=== PATIENT | male | born 1935 | race Two or more races ===

== ENCOUNTER 2021-01-06 06:58 | Inpatient (IN) | payer OTHER ==
[~2021-01-06] VITALS: Ht 172.7 cm; Wt 73.3 kg
[~2021-01-06 06:58] MED LIST: ALEN35TA18 PO; ASPI-543 PO; ATOR10TA52 PO; DOCU100T15 PO; FAMO-12 PO; FURO20TA3 PO; POTA10TA51 PO; SUCR1TAB PO
[2021-01-06] MEDS ORDERED: ceFAZolin 1GM/50ML 50 ML IV ONE ×2 (10:30→10:45)
[2021-01-06] MEDS ORDERED: fentaNYL CITRATE 100 MCG/2 ML VL ONE (10:34)
[2021-01-06] MEDS ORDERED: MIDAZOLAM HCL 2MG/2ML 2ml VIAL (1mg/ml) ONE (10:34)
[2021-01-06] MEDS ORDERED: LIDOCAINE 2%HCL (LOCAL ANESTH.) INJ 20ML MDV ONE (10:34)
[2021-01-06] MEDS ORDERED: ceFAZolin 1GM VL ONE (10:45)
[2021-01-06] MEDS ORDERED: ONDANSETRON HCL 4 MG/2 ML VIAL ONE (11:48)
[2021-01-06] MEDS ORDERED: ceFAZolin 1GM/50ML 50 ML IV SCH (12:30)
[2021-01-06] MEDS ORDERED: PANTOPRAZOLE 40 MG TAB PO ONE (12:30)
[2021-01-06] MEDS ORDERED: HYDROcodone-ACET 5/325MG TAB PO PRN (12:30)
[2021-01-06] MEDS ORDERED: SODIUM CHLORIDE 0.9% 70 ML IV ONE (12:30)
[2021-01-06] MEDS ORDERED: ACETAMINOPHEN 325 MG TAB PO PRN (12:30)
[2021-01-06] MEDS ORDERED: NITROGLYCERIN 0.4 MG SL TAB SL PRN (12:30)
[2021-01-06] MEDS ORDERED: DOCUSATE SOD 100 MG CAP PO PRN (12:45)
[2021-01-06] MEDS: PANTOPRAZOLE 40 MG/10 ML VIAL INJ IV SCH (14:50)
[2021-01-06 15:29] VITALS: BP 111/81
[2021-01-06 16:09] VITALS: BP 111/81
[2021-01-06 17:13] VITALS: BP 134/74
[2021-01-06] MEDS: ceFAZolin 1GM/50ML 50 ML IV SCH (17:35)
[2021-01-06] MEDS: SUCRALFATE 1 GM TAB PO SCH (21:38)
[2021-01-06] MEDS: FAMOTIDINE 20 MG TAB PO SCH (21:38)
[2021-01-06 22:00] VITALS: BP 135/69
[2021-01-06] MEDS ORDERED: ATORVASTATIN 20 MG TAB PO SCH (22:00)
[2021-01-07] MEDS: ceFAZolin 1GM/50ML 50 ML IV SCH (01:54)
[2021-01-07 05:00] VITALS: BP 135/60
[2021-01-07 07:42] LABS: Basophils # (auto) 0 10 ^3/uL (0-0.2); Basophils % (auto) 0.4 % (0.0-2.0); Eosinophils # (auto) 0.1 10 ^3/uL (0-0.8); Eosinophils % (auto) 1.2 % (0.0-7.0); Hematocrit 38.2 % (41.0-53.0); Hemoglobin 13.3 g/dL (13.5-17.5); Lymphocytes # (auto) 1.8 10 ^3/uL (0.4-5.4); Lymphocytes % (auto) 30.6 % (10.0-50.0); Mean Corpuscular Hemoglobin 32.6 pg (28.0-32.0); Mean Corpuscular Hgb Conc. 34.7 g/dL (32.0-36.0); Monocytes # (auto) 0.6 10 ^3/uL (0-1.3); Monocytes % (auto) 9.6 % (0.0-12.0); Neutrophils # (auto) 3.4 10 ^3/uL (1.6-8.6); Neutrophils % (auto) 58.2 % (37.0-80.0); Nucleated Red Blood Cells % 0.1 %; Red Blood Cells 4.06 10^6/uL (4.5-5.90); Red Cell Distribution Width 13.3 % (11.8-14.3); White Blood Cell 5.9 10^3/uL (4.4-10.8)
[2021-01-07 09:30] VITALS: BP 131/70
[2021-01-07] MEDS: FAMOTIDINE 20 MG TAB PO SCH (09:37)
[2021-01-07] MEDS: SUCRALFATE 1 GM TAB PO SCH (09:37)
[2021-01-07] MEDS ORDERED: PANTOPRAZOLE 40 MG/10 ML VIAL INJ IV SCH (10:00)
[2021-01-07] MEDS: PANTOPRAZOLE 40 MG/10 ML VIAL INJ IV SCH (10:00)
[2021-01-07 13:28] VITALS: BP 131/70
== END 2021-01-07 14:25 | disposition home or self-care (01) | DRG 244 ==
LOC: CATH 06:58 → TELE 12:16 → TELE-WESTW 15:24
PROVIDERS: ADMIT Internal Medicine Cardiovascular Disease; ATTEND Internal Medicine Cardiovascular Disease
PROC: 0JH606Z Insertion of Pacemaker, Dual Chamber into Chest Subcutaneous Tissue and Fascia, Open Approach (ICD-10-PCS; principal; 2021-01-06)
PROC: 02HK3JZ Insertion of Pacemaker Lead into Right Ventricle, Percutaneous Approach (ICD-10-PCS; 2021-01-06)
PROC: 02H63JZ Insertion of Pacemaker Lead into Right Atrium, Percutaneous Approach (ICD-10-PCS; 2021-01-06)
DX: I49.5 Sick sinus syndrome (principal); E11.9 Type 2 diabetes mellitus without complications; K44.9 Diaphragmatic hernia without obstruction or gangrene; R55 Syncope and collapse; E78.5 Hyperlipidemia, unspecified; Z20.822 Contact with and (suspected) exposure to COVID-19
CPT/HCPCS: 33208; U0003; 36415; 71045; 82271; 85025; 93005; 99152; 99153; C1785; G0378; J0690; J2250; J2405